=== PATIENT | female | born 1960 | race Caucasian/White ===

== ENCOUNTER 2019-06-09 00:42 | Observation (INO) | payer BC ==
[2019-06-09 01:44] LABS: Absolute Lymphocytes (CBC) 2.4 K/uL (0.7-4.9); Basophils % 0.8 % (0-1.3); Hematocrit 38.1 % (36.0-45.0); MPV 9.7 fL (7.6-11.3); RBC Red Blood Cell Count 4.29 M/uL (3.86-4.86)
[2019-06-09 01:45] LABS: Protime INR 1.01
[2019-06-09 02:09] LABS: ALT/SGPT 43 U/L (12-78); AST/SGOT 17 U/L (15-37); Albumin 3.7 g/dL (3.4-5.0); Alkaline Phosphatase 89 U/L (45-117); BUN Blood Urea Nitrogen 23 mg/dL (7-18); Bicarbonate 28 mmol/L (21-32); Bilirubin Direct < 0.1 mg/dL (0-0.2); Bilirubin Total 0.3 mg/dL (0.2-1.0); Glucose Level 97 mg/dL (74-106); NT PRO-BNP 238 pg/mL (<125); Protein, Total 6.6 g/dL (6.4-8.2); Sodium Level 144 mmol/L (136-145); Thyroid Stimulating Hormone 0.499 uIU/mL (0.360-3.740); Troponin (Emerg Dept Use Only) 0.11 ng/mL (0.0-0.045)
--- NOTE | 2019-06-09 02:38 | ER ---
Nurse's Notes [facility] Name: Marychuy Allen Age: 59 yrs Sex: Female : 1960 Arrival Date: 06/09/2019 Time: 00:47 Bed 3 Private MD: Diagnosis: Palpitations;Elevated troponin Presentation: 06/09 01:06 Presenting complaint: Patient states: she is currently being seen by Dr Bobby for bb palpitation she had a nuclear stress test done and has follow-up appt with Dr Bobby on Sunday but tonight she felt her heart fluttering and her pulse was up to 150s according to her watch, she can feel her heart beating harder during these episodes. Transition of care: patient was not received from another setting of care. Onset of symptoms was June 09, 2019. Risk Assessment: Do you want to hurt yourself or someone else? Patient reports no desire to harm self or others. Initial Sepsis Screen: Does the patient meet any 2 criteria? No. Patient's initial sepsis screen is negative. Does the patient have a suspected source of infection? No. Patient's initial sepsis screen is negative. Care prior to arrival: None. 01:06 Method Of Arrival: Ambulatory bb 01:06 Acuity: TL 3 bb Historical: - Allergies: 01:14 propantheline; bb - Home Meds: 01:14 estrodial patch [Active]; bb 01:18 homeopathic medication for thyroid [Active]; bb - PMHx: 01:14 None; bb - PSHx: 01:14 partial hysterectomy; bb - Immunization history:: Adult Immunizations up to date. - Social history:: Smoking status: Patient/guardian denies using tobacco. - Ebola Screening: : No symptoms or risks identified at this time. Screenin:34 Abuse screen: Denies threats or abuse. Denies injuries from another. Nutritional rr5 screening: No deficits noted. Tuberculosis screening: No symptoms or risk factors identified. Fall Risk IV access (20 points). Total Barbosa Fall Scale indicates No Risk (0-24 pts). Assessment: 01:10 General: Appears in no apparent distress. comfortable, Behavior is calm, cooperative, rr5 appropriate for age. 01:10 Pain: Denies pain. Neuro: Level of Consciousness is awake, alert, obeys commands, rr5 Oriented to person, place, time, situation, Appropriate for age. Cardiovascular: Reports heart fluttering and feels palpitation. Capillary refill < 3 seconds Patient's skin is warm and dry. Respiratory: Airway is patent Respiratory effort is even, unlabored, Respiratory pattern is regular, symmetrical. GI: No signs and/or symptoms were reported involving the gastrointestinal system. : No signs and/or symptoms were reported regarding the genitourinary system. EENT: No signs and/or symptoms were reported regarding the EENT system. Derm: Skin is intact, Skin temperature is warm. Musculoskeletal: Circulation, motion, and sensation intact. Capillary refill < 3 seconds. 02:30 Reassessment: Patient appears in no apparent distress at this time. Patient and/or rr5 family updated on plan of care and expected duration. Pain level reassessed. Patient is alert, oriented x 3, equal unlabored respirations, skin warm/dry/pink. reassess by ED provider advise for admission. patient agreed for the plan of care. Patient denies pain at this time. 03:25 Reassessment: patient reported i feel like my heart is pounding HR 90bpm on the rr5 monitor. after few minutes seconds it went down to 80's then 70's beats per minute. sql report analyst shows sinus rhythm. ED provider reassess the patient without orders made. patient feels comfortable lying on bed. 04:15 Reassessment: Patient appears in no apparent distress at this time. No changes from rr5 previously documented assessment. Patient and/or family updated on plan of care and expected duration. Pain level reassessed. Patient is alert, oriented x 3, equal unlabored respirations, skin warm/dry/pink. awaiting for In patient orders, informed the hospitalist thru text. 04:55 Reassessment: awaiting for in patient orders. charge nurse and track inspecting supervisor aware. rr5 04:55 Reassessment: call made to hospitalist no one answer the call. rr5 05:05 Reassessment: Patient appears in no apparent distress at this time. Patient is alert, rr5 oriented x 3, equal unlabored respirations, skin warm/dry/pink. no complaints made. 05:15 Reassessment: Patient appears in no apparent distress at this time. follow up call the 5 hospitalist no one answer the call. 06:03 Reassessment: Report called to BELKIS Turner. jb4 06:03 Reassessment: Patient appears in no apparent distress at this time. No changes from rr5 previously documented assessment. Sansan orders in. call made to 2nd floor report called. Vital Signs: 01:14 BP 127 / 79; Pulse 80; Resp 16 S; Temp 97.6(O); Pulse Ox 98% on R/A; Weight 58.97 kg bb (R); Height 5 ft. 4 in. (162.56 cm) (R); Pain 0/10; 01:35 BP 131 / 77; Pulse 61; Resp 16; Pulse Ox 98% ; Pain 0/10; rr5 02:30 BP 121 / 77; Pulse 64; Resp 16; Pulse Ox 98% ; rr5 03:30 BP 141 / 78; Pulse 60; Resp 16; Pulse Ox 98% ; rr5 05:00 BP 130 / 77; Pulse 65; Resp 16; Pulse Ox 100% ; rr5 06:00 BP 120 / 68; Pulse 70; Resp 14; Pulse Ox 99% on R/A; jb4 01:14 Body Mass Index 22.31 (58.97 kg, 162.56 cm) bb ED Course: 00:47 Patient arrived in ED. ag3 01:04 Case Fernandez NP is PHCP. pm1 01:04 Pablo Conn MD is Attending Physician. pm1 01:09 Triage completed. bb 01:12 Isaias Briseno RN is Primary Nurse. rr5 01:14 Arm band placed on Patient placed in an exam room, on a stretcher, on sql report analyst, bb on pulse oximetry. EKG completed in triage. Results shown to MD. 01:30 Inserted saline lock: 22 gauge in right antecubital area, using aseptic technique. rr5 Blood collected. 01:30 No provider procedures requiring assistance completed. rr5 01:32 XRAY Chest (1 view) In Process Unspecified. EDMS 01:35 Patient has correct armband on for positive identification. Placed in gown. Bed in low rr5 position. Call light in reach. Side rails up X2. fusion operator on. Pulse ox on. NIBP on. 02:37 Courtney Goff MD is Hospitalizing Provider. pm1 06:00 Patient admitted, IV remains in place. jb4 Administered Medications: 02:44 Drug: Aspirin 243 mg Route: PO; rr5 03:40 Follow up: Response: No adverse reaction rr5 Outcome: 02:37 Decision to Hospitalize by Provider. pm1 06:00 Admitted to Tele accompanied by tech, via stretcher, room 412, with chart, Report jb4 called to BELKIS Turner 06:00 Condition: stable 06:00 Discharge instructions given to patient, Instructed on the need for admit, Demonstrated understanding of instructions. 06:29 Patient left the ED. jb4 Signatures: Dispatcher [employer] EDNatalie Guevara, RN RN bb Case Fernandez, GIUSEPPE DIGITAL TRAFFIC COORDINATOR pm1 Sanchez Singletary RN RN jb4 Alba Campbell ag3 Isaias Briseno, RN RN rr5
--- NOTE | 2019-06-09 02:38 | EDPHYS ---
Physician Documentation [facility] Name: Marychuy Allen Age: 59 yrs Sex: Female : 1960 Arrival Date: 06/09/2019 Time: 00:47 Bed 3 Private MD: ED Physician Pablo Conn HPI: 06/09 01:42 This 59 yrs old Female presents to ER via Ambulatory with complaints of pm1 Palpitations. 01:42 The patient presents with a history of heart racing. Context: The symptoms occur pm1 without known cause. Onset: The symptoms/episode began/occurred 3 month(s) ago, more frequent recently. Modifying factors: The symptoms are alleviated by nothing. Associated signs and symptoms: Pertinent negatives: chest pain, cough, fever, nausea, SOB, vomiting. Severity of symptoms: in the emergency department the symptoms have resolved Pain is currently a 0 / 10. The patient has been recently seen by a physician: has appointment with Dr. Bobby on Sunday to follow up on nuclear imaging. Had stress test and echo with Dr. Bobby last week. 01:42 Patient's heart rate was 140s per watch with sensation of strong beats going up her pm1 throat prior to arrival. Lasted for about 1 minute. Historical: - Allergies: 01:14 propantheline; bb - Home Meds: 01:14 estrodial patch [Active]; bb 01:18 homeopathic medication for thyroid [Active]; bb - PMHx: 01:14 None; bb - PSHx: 01:14 partial hysterectomy; bb - Immunization history:: Adult Immunizations up to date. - Social history:: Smoking status: Patient/guardian denies using tobacco. - Ebola Screening: : No symptoms or risks identified at this time. ROS: 01:52 Constitutional: Negative for fever, chills, and weight loss, Eyes: Negative for injury, pm1 pain, redness, and discharge, ENT: Negative for injury, pain, and discharge, Neck: Negative for injury, pain, and swelling. 01:52 Respiratory: Negative for shortness of breath, cough, wheezing, and pleuritic chest pain, Abdomen/GI: Negative for abdominal pain, nausea, vomiting, diarrhea, and constipation, Back: Negative for injury and pain, MS/Extremity: Negative for injury and deformity, Skin: Negative for injury, rash, and discoloration, Neuro: Negative for headache, weakness, numbness, tingling, and seizure. :52 Cardiovascular: Positive for palpitations, Negative for chest pain, edema, orthopnea. Exam: :52 Constitutional: This is a well developed, well nourished patient who is awake, alert, pm1 and in no acute distress. Head/Face: Normocephalic, atraumatic. Eyes: Pupils equal round and reactive to light, extra-ocular motions intact. Lids and lashes normal. Conjunctiva and sclera are non-icteric and not injected. Cornea within normal limits. Periorbital areas with no swelling, redness, or edema. ENT: Nares patent. No nasal discharge, no septal abnormalities noted. Tympanic membranes are normal and external auditory canals are clear. Oropharynx with no redness, swelling, or masses, exudates, or evidence of obstruction, uvula midline. Mucous membranes moist. Neck: Trachea midline, no thyromegaly or masses palpated, and no cervical lymphadenopathy. Supple, full range of motion without nuchal rigidity, or vertebral point tenderness. No Meningismus. Chest/axilla: Normal chest wall appearance and motion. Nontender with no deformity. No lesions are appreciated. Cardiovascular: Regular rate and rhythm with a normal S1 and S2. No gallops, murmurs, or rubs. Normal PMI, no JVD. No pulse deficits. Respiratory: Lungs have equal breath sounds bilaterally, clear to auscultation and percussion. No rales, rhonchi or wheezes noted. No increased work of breathing, no retractions or nasal flaring. Abdomen/GI: Soft, non-tender, with normal bowel sounds. No distension or tympany. No guarding or rebound. No evidence of tenderness throughout. Back: No spinal tenderness. No costovertebral tenderness. Full range of motion. Skin: Warm, dry with normal turgor. Normal color with no rashes, no lesions, and no evidence of cellulitis. MS/ Extremity: Pulses equal, no cyanosis. Neurovascular intact. Full, normal range of motion. :52 Neuro: Orientation: is normal, Motor: is normal, moves all fours, Sensation: is normal, no obvious gross deficits. Vital Signs: :14 BP 127 / 79; Pulse 80; Resp 16 S; Temp 97.6(O); Pulse Ox 98% on R/A; Weight 58.97 kg bb (R); Height 5 ft. 4 in. (162.56 cm) (R); Pain 0/10; 01:35 BP 131 / 77; Pulse 61; Resp 16; Pulse Ox 98% ; Pain 0/10; rr5 02:30 BP 121 / 77; Pulse 64; Resp 16; Pulse Ox 98% ; rr5 03:30 BP 141 / 78; Pulse 60; Resp 16; Pulse Ox 98% ; rr5 05:00 BP 130 / 77; Pulse 65; Resp 16; Pulse Ox 100% ; rr5 06:00 BP 120 / 68; Pulse 70; Resp 14; Pulse Ox 99% on R/A; jb4 01:14 Body Mass Index 22.31 (58.97 kg, 162.56 cm) bb MDM: 01:04 Patient medically screened. pm1 02:36 Data reviewed: vital signs. Data interpreted: Pulse oximetry: on room air is 98 %. pm1 Interpretation: normal. Counseling: I had a detailed discussion with the patient and/or guardian regarding: the historical points, exam findings, and any diagnostic results supporting the discharge/admit diagnosis, lab results, radiology results, the need for outpatient follow up, to return to the emergency department if symptoms worsen or persist or if there are any questions or concerns that arise at home. 06/09 01:15 Order name: Basic Metabolic Panel; Complete Time: 02:15 pm1 06/09 01:15 Order name: CBC with Diff; Complete Time: 01:48 pm1 06/09 01:15 Order name: LFT's; Complete Time: 02:15 pm1 06/09 01:15 Order name: Magnesium; Complete Time: 02:15 pm1 06/09 01:15 Order name: NT PRO-BNP; Complete Time: 02:15 pm1 06/09 01:15 Order name: PT-INR; Complete Time: 01:48 pm1 06/09 01:15 Order name: Troponin (emerg Dept Use Only); Complete Time: 02:15 pm1 06/09 01:15 Order name: XRAY Chest (1 view) pm1 06/09 01:15 Order name: EKG; Complete Time: 01:16 pm1 06/09 01:15 Order name: TSH; Complete Time: 02:15 pm1 06/09 05:58 Order name: CONS Physician Consult EDME 06/09 05:59 Order name: Troponin I EDME 06/09 06:03 Order name: Echo with Doppler EDME 06/09 01:15 Order name: Cardiac monitoring; Complete Time: 01:27 pm1 06/09 01:15 Order name: EKG - Nurse/Tech; Complete Time: 01:27 pm1 06/09 01:15 Order name: IV Saline Lock; Complete Time: :35 pm1 06/09 01:15 Order name: Labs collected and sent; Complete Time: 01:35 pm1 06/09 01:15 Order name: O2 Per Protocol; Complete Time: 01:27 pm1 06/09 01:15 Order name: O2 Sat Monitoring; Complete Time: :27 pm1 06/09 05:58 Order name: Heart Healthy EDME Administered Medications: 02:44 Drug: Aspirin 243 mg Route: PO; rr5 03:40 Follow up: Response: No adverse reaction rr5 Disposition: 06/09/19 02:37 Hospitalization ordered by Courtney Goff for Observation. Preliminary diagnosis are Palpitations, Elevated troponin. - Bed requested for Telemetry/MedSurg (observation). - Status is Observation. jb4 - Condition is Stable. - Problem is new. - Symptoms have improved. UTI on Admission? No Addendum: 06/13/2019 15:28 Co-signature as Attending Physician, Pablo Conn MD. g s Signatures: Dispatcher [facility] Rosa Finley RN RN Natalie Ga RN BELKIS bb Case Fernandez, SEWER LINE PHOTO INSPECTOR SEWER LINE PHOTO INSPECTOR pm1 Sanchez Singletary RN RN jb4 Pablo Conn MD MD gs Roque, Raymond, RN RN rr5 Corrections: (The following items were deleted from the chart) 06/09 02:38 02:37 Hospitalization Ordered by Coutrney Goff MD for Inpatient Admission. Preliminary pm1 diagnosis is Palpitations; Elevated troponin. Bed requested for Telemetry/MedSurg (Inpatient). Status is Inpatient Admission. Condition is Stable. Problem is new. Symptoms have improved. UTI on Admission? No. pm1 03:37 02:38 06/09/2019 02:37 Hospitalization Ordered by Courtney Goff MD for Observation. earl Preliminary diagnosis is Palpitations; Elevated troponin. Bed requested for Telemetry/MedSurg (observation). Status is Observation. Condition is Stable. Problem is new. Symptoms have improved. UTI on Admission? No. pm1 06:29 03:37 06/09/2019 02:37 Hospitalization Ordered by Courtney Goff MD for Observation. jb4 Preliminary diagnosis is Palpitations; Elevated troponin. Bed requested for Telemetry/MedSurg (observation). Status is Observation. Condition is Stable. Problem is new. Symptoms have improved. UTI on Admission? No. mw
[2019-06-09] MEDS ORDERED: ASPIRIN 81 MG CHEWABLE TABLET ONE (02:41)
[2019-06-09] MEDS ORDERED: ACETAMINOPHEN 500 MG TAB PO PRN (05:55)
[2019-06-09] MEDS ORDERED: ALPRAZOLAM 0.25 MG TABLET PO PRN (05:55)
[2019-06-09] MEDS ORDERED: MORPHINE 4 MG/ML SYR IV PRN (05:55)
[2019-06-09 06:42] VITALS: BMI 22.5
[2019-06-09] MEDS: METOPROLOL TAR 50 MG TAB PO SCH ×3 (07:00→20:02)
[2019-06-09] MEDS: ASPIRIN EC 81 MG TAB PO SCH (08:33)
--- NOTE | 2019-06-09 08:33 | RAD REPORT ---
EXAM DESCRIPTION: RAD - Chest Single View - 06/09/2019 1:33 am CLINICAL HISTORY: Palpitations, chest discomfort COMPARISON: None. TECHNIQUE: AP portable chest image was obtained 0130 hours . FINDINGS: Lungs are clear. Heart and vasculature are normal. No measurable pleural effusion and no p neumothorax. No acute bony abnormality seen. No acute aortic findings suspected. IMPRESSION: No acute cardiopulmonary process.
--- NOTE | 2019-06-09 10:00 | EKG ---
Test Date: 2019-06-09 Test Time: 00:56:00 Blending Technician: EMIR MEASUREMENT RESULTS: Intervals: Rate: 75 MO: 138 QRSD: 82 QT: 390 QTc: 435 [place]: P: 76 MO: 138 QRS: 92 T: 7 INTERPRETIVE STATEMENTS: Normal sinus rhythm Right atrial enlargement Rightward axis Abnormal ECG No previous ECG available for comparison Electronically Signed On 06-09-19 10:00:11 CDT by Jose Luis Bobby
--- NOTE | 2019-06-09 10:01 | P.HP ---
Certification for Inpatient Patient admitted to: Observation With expected LOS: <2 Midnights Patient will require the following post-hospital care: None Practitioner: I am a practitioner with admitting privileges, knowledge of patient current condition, hospital course, and medical plan of care. Services: Services provided to patient in accordance with Admission requirements found in Title 42 Section 412.3 of the Code of Federal Regulations Patient History Date of Service: 06/09/19 Reason for admission: palpitations History of Present Illness: Patient is a 59-year-old female who came into the hospital with chest palpitations. She has had extensive cardiac workup as an outpatient over the last week including an EKG, echocardiogram, treadmill stress test, and a pharmacologic stress test. She was scheduled the be seen on Sunday for the results. She woke up last night and went to the restroom. She wears an apple watch since she has been having some chest discomfort. The Apple watch revealed that her heart rate was 140s. She decided to come into the hospital for further evaluation. Her initial troponin was 0.11. She denies having any chest pain. There was no shortness of breath or diaphoresis. She had no nausea or vomiting. But in light of her symptoms and she has a family history of a father who at 41 with a heart attack it may be best to go ahead and have Cardiology see her for further intervention. Cardiology consultation pending. Allergies propantheline Allergy (Verified 06/09/19 07:34) Hives/Rash Home Medications: Estradiol 1 patch TD SEECOM 06/09/19 - Past Medical/Surgical History Has patient received pneumonia vaccine in the past: No Diabetic: No Past Medical History: Patient denies medical history -: Partial Hysterectomy - Family History Father Medical History: Heart disease, Other (see notes) ( at 41 years of age) Notes: [place] Mother Medical History: Stroke - Social History Smoking Status: Never smoker Alcohol use: Yes CD- Drugs: No Caffeine use: Yes Place of Residence: Home Review of Systems 10-point ROS is otherwise unremarkable Physical Examination - Vital Signs Temperature: 98.7 F Blood Pressure: 138/66 Pulse: 59 Respirations: 15 Pulse Ox (%): 100 - Physical Exam General: Alert, In no apparent distress, Oriented x3 HEENT: Atraumatic, PERRLA, Mucous membr. moist/pink, EOMI, Sclerae nonicteric Neck: Supple, 2+ carotid pulse no bruit, No LAD, Without JVD or thyroid abnormality Respiratory: Clear to auscultation bilaterally, Normal air movement Cardiovascular: Regular rate/rhythm, Normal S1 S2, No murmurs Gastrointestinal: Normal bowel sounds, Soft and benign, Non-distended, No tenderness Musculoskeletal: No clubbing, No swelling, No tenderness Integumentary: No rashes Neurological: Normal gait, Normal speech, Normal strength at 5/5 x4 extr, Normal tone, Sensation intact, Cranial nerves 3-12 intact, Normal affect Lymphatics: No axilla or inguinal lymphadenopathy - Studies Laboratory Data (last 24 hrs) 06/09/19 01:30: PT 11.9, INR 1.01 06/09/19 01:30: WBC 5.9, Hgb 13.5, Hct 38.1, Plt Count 174 06/09/19 01:30: Sodium 144, Potassium 4.0, BUN 23 H, Creatinine 1.12, Glucose 97 , Magnesium 2.0, Total Bilirubin 0.3, AST 17, ALT 43, Alkaline Phosphatase 89 Assessment & Plan - Problems (Diagnosis) (1) Non-STEMI (non-ST elevated myocardial infarction) Current Visit: Yes Status: Acute (2) Palpitations Current Visit: Yes Status: Acute (3) Family history of heart disease Current Visit: Yes Status: Acute - Plan 1. Serial troponins and EKG 2. Cardiology consultation 3. Echocardiogram further test pending cardiology evaluation 4. Anti-platelet therapy, anti coagulation, beta-jeff, statin, and O2 as needed 5. IV morphine for pain 6. Nitro p.r.n. Discharge Plan: Home Plan to discharge in: 48 Hours - Advance Directives Does patient have a Living Will: Yes Does patient have a Durable POA for Healthcare: Yes - Code Status/Comfort Care Code Status Assessed: Yes Code Status: Full Code Critical Care: No Time Spent Managing PTS Care (In Minutes): 45
--- NOTE | 2019-06-09 10:45 | CON ---
Reason For Consult: Abnormal troponin. History Of Present Illness: Ms. Allen is a woman who has been having spells, either chest pain or heart racing. We did an outpatient workup. We did a stress test and found apical ischemia and we were getting later to set up cardiac cath, but she had another spell, came to the emergency room last night. By the time she got to the emergency room her symptoms were gone. Her longest spells lasted 30 seconds. She has probably had 20 or more spells over the last couple of years. None of them have ever been captured with an EKG. She wears a smart watch and it sensed the heart rate is 170 , but it is impossible to make a diagnosis. The patient does not have diabetes or hypertension. She uses an estradiol patch, no other medications. She uses no tobacco, rare alcohol. No illegal drugs. Physical Examination: Vital Signs: 5 feet 4, 131 pounds. HEENT: Normal. Lungs: Clear. Cardiac: Exam normal. Abdomen: Soft. Extremities: Normal. Laboratory Exam: Normal hemoglobin and hematocrit, white blood cell count. Troponin 0.11. N-terminal proBNP 238, creatinine 1.12, GFR 49. Impression: As the patient probably has an arrhythmia, we cannot make a diagnosis without a tracing. She may end up getting an implantable loop recorder or an EP study. I will discuss it with the physicians. In the meantime because of the troponins and abnormal Cardiolite we will need to do a cardiac cath. We will do that tomorrow and it will be a right femoral approach. Dr. Farah will be the physician. He will be ready to put a stent in as needed. VINNY Voice ID: [id number] Report ID: [id number] SANTA
[2019-06-10] MEDS: ASPIRIN EC 81 MG TAB PO SCH (06:30)
[2019-06-10] MEDS: METOPROLOL TAR 50 MG TAB PO SCH (06:30)
[2019-06-10] MEDS ORDERED: FENTANYL CITR 100 MCG/2 ML ONE (09:27)
[2019-06-10] MEDS ORDERED: NA CHLORIDE 0.9% 500 ML ONE (09:27)
[2019-06-10] MEDS ORDERED: HEPA 1000U/500MLS 1,000 UNIT/500 ML BAG IV ONE (09:27)
[2019-06-10] MEDS ORDERED: MIDAZOLAM HCL 2 MG/2 ML INJ ONE (09:27)
[2019-06-10] MEDS ORDERED: NA CHLORIDE 0.9% 0 ML ONE (09:28)
[2019-06-10] MEDS ORDERED: ATROPINE SULF 1 MG/10 ML SYR IV ONE (09:28)
[2019-06-10 11:20] VITALS: O2SAT 99
[2019-06-10 16:40] VITALS: BP 102/64; TEMP 97.4
--- NOTE | 2019-06-10 20:14 | OP ---
Surgeon: José Miguel Farah MD Funeral Home Assistant: Cecelia Coy. Patient will be going home today and she will see me in the office in the next 2 weeks. Patient was brought to the fish hatchery lab[facility] today as an inpatient for heart catheterization. Procedure Performed: Left heart catheterization, selective coronary arteriogram. Indications: Patient had come in with palpitation, atypical chest pain. Has had an abnormal stress test and abnormal troponin, was scheduled for a heart catheterization as an inpatient. Description Of Procedure: Patient was brought to the fish hatchery laborer, prepped and draped in the routine mariola rile fashion. Received 2 mg of Versed and 50 of fentanyl for sedation. Access was done via right co mmon femoral artery approach with a 6-Pashto sheath. Left Flory and right Flory catheter were us ed to do the diagnostic catheterization. Patient was found to have a normal right coronary artery, n ormal circumflex and normal LAD. There were no focal stenosis. No atherosclerosis. No plaquing. S he did have a myocardial bridge in the mid LAD. There were no complications. Blood Loss: 5 mL. Anesthesia: Total conscious sedation was 30 minutes. Final Diagnoses: Normal coronaries. 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 Plan: Plan is for medical therapy for possible arrhythmias. She is already on metoprolol and aspiri n. ZHANNA/RAEGAN Voice ID: [id number] Report ID: [id number]
--- NOTE | 2019-06-10 23:56 | DS ---
Date of Discharge: 06/10/2019 Consultants: Dr. Bobby and Dr. Farah with Cardiology. Procedures: Heart catheterization on 06/10/2019, normal coronaries. Discharge Diagnoses: 1.[id number] myocardial infarction. 2.Palpitations. Family History: Heart disease. Hospital Course: Patient is a 59-year-old female, comes in with chest palpitations. Patient had wor kup as an outpatient, however, continued to have palpitations, came in with elevated troponin levels, 0.11, stayed the same x3 at 0.11. Patient was seen by Dr. Bobby and was scheduled for heart cathet erization by Dr. Farah. Heart catheterization showed normal coronaries. Patient's palpitations re solved. She stayed in sinus rhythm to sinus maritza. Her TSH was 0.499. Patient's symptoms improved. She was then cleared for discharge from Cardiology standpoint to have possible loop recorder placed as an outpatient, overall did well. 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 Farah in 2 weeks and return to ER for worsening condition. She is to have her TSH rechecked in 6-8 weeks. Medications: As per medication reconciliation list. Patient was warned about estradiol which does p ut her at risk for thromboembolic events. She understands the risks. Diet: Heart healthy. Activity: As tolerated. Physical Examination: General: Awake, alert, oriented x3. No acute distress. CV: S1-S2. No murmurs. Respiratory: Moving air well bilaterally. No wheezing. Gastrointestinal: Abdomen is soft, nontender, nondistended. Positive bowel sounds. Extremities: No clubbing, cyanosis, or edema. Neurologic: Nonfocal. Skin: Cath site no hematoma. Clean, dry, intact. Lower extremities neurovascularly intact. SA/MODL Voice ID: [id number] Report ID: [id number]
--- OUTSIDE RECORDS SUMMARY | 2019-07-05 18:38 | XMS REPORT ---
:1960 Author Organization [employer] Care Team Providers Name Role Phone Darci Mckeon Provider Role Unavailable Allergies No Known Allergies Problems Problem Type Condition Code Onset Dates Condition Status Problem Menopausal hot flushes N95.1 Active Problem Hormone replacement therapy (HRT) Z79.890 Active Medications Medication Code System Code Instructions Start End Date Status Dosage Date Estradiol [facility] [id number] 0.05 MG/24HR December 28, Active 1 patch to Transdermal Two 2017 skin times a Week Results No Known Results Summary Purpose [employer]Clinical[employer] Submission
== END 2019-06-10 17:06 | disposition home or self-care (01) ==
LOC: ER 00:42 → 4TH 06:23
PROVIDERS: ADMIT Hospitalist; ATTEND Hospitalist
PROC: 4A023N7 Measurement of Cardiac Sampling and Pressure, Left Heart, Percutaneous Approach (ICD-10-PCS; principal; 2019-06-10)
PROC: B201YZZ Plain Radiography of Multiple Coronary Arteries using Other Contrast (ICD-10-PCS; 2019-06-10)
PROC: B205YZZ Plain Radiography of Left Heart using Other Contrast (ICD-10-PCS; 2019-06-10)
DX: I21.4 Non-ST elevation (NSTEMI) myocardial infarction (principal); R00.2 Palpitations; Z82.49 Family history of ischemic heart disease and other diseases of the circulatory system; Q24.5 Malformation of coronary vessels
CPT/HCPCS: 93005; 85025; 80048; 36415 ×2; 83735; 85610; 80061; 80076; 84443; 84484 ×3; 83880; 71045; 93454; 99285; C1893; C1760; J2250; J3010; G0378 ×4; J7040; J0583